=== PATIENT | male | born 1990 | race African-American/Black ===

== ENCOUNTER 2018-02-11 11:30 | Emergency (ER) | payer OTHER ==
[~2018-02-11] VITALS: Ht 180.3 cm; Wt 99.8 kg
[~2018-02-11 11:30] MED LIST: BACTRIM DS TAB1 EACH PO; CLEOCIN HCL300 MG PO; HYDROCODONE-AP1 EAC6 PO; NORCO 5-325 TA1 EACH PO
[2018-02-11] MEDS ORDERED: IBUPROFEN 800800 M1 PO (12:36)
[2018-02-11 13:13] VITALS: BP 131/78
== END 2018-02-11 13:16 | disposition home or self-care (01) ==
LOC: ER 11:30
DX: S63.286A Dislocation of proximal interphalangeal joint of right little finger, initial encounter (principal); X58.XXXA Exposure to other specified factors, initial encounter; Y93.67 Activity, basketball; Y92.89 Other specified places as the place of occurrence of the external cause; Y99.8 Other external cause status